=== PATIENT | female | born 1975 | race Two or more races ===

== ENCOUNTER 2024-08-06 15:34 | Emergency (ER) | payer MEDICARE, MEDICAID, SELFPAY ==
[2024-08-06 15:35] VITALS: BMI 31.9
[2024-08-06 15:58] VITALS: BP 160/98; PULSE 75; RESP 20; TEMP 37.1; O2SAT 95
--- NOTE | 2024-08-06 16:08 | PD.EDDENTL ---
ED Dental RME/HPI General Chief complaint: Dental/Oral/Throat Stated complaint: TOOTHACHE/FACIAL SWELLING x 2 DAYS,SENT BY DENTIST Time Seen by Provider: 08/06/24 15:56 Arrival date/time: 08/06/24 15:34 RME / HPI RME / HPI Narrative: 49-year-old female patient was brought in by family for evaluation regarding request for antibiotic shot. Patient was seen by dentist for a dental infection on the left upper premolar, been ongoing for the last 2 days. Saw her dentist earlier today and was prescribed p.o. antibiotic however patient was advised to come for the shot. Denies any difficulty swallowing, denies any fever. She was prescribed antibiotic and pain medication that she still have to seed [facility]er Related Data Previous Rx's ?Medication ?Instructions ?Recorded lisinopril 10 mg tablet 10 mg PO QDAY #30 tabs 10/31/15 Allergies Allergy/AdvReac Type Severity Reaction Status Date / Time No Known Allergies Allergy Verified 08/06/24 15:36 Review of Systems Review of Systems Narrative Review of Systems: Review of system reviewed and within normal limits except mentioned in HPI ED Exam Narrative Physical exam: VITAL SIGNS: Reviewed. GENERAL APPEARANCE: Alert and interactive, follows commands, no acute distress, HEAD AND FACE: Non-traumatic. ENT: PERRL, pink conjunctivitis, eyelid no trauma, Mucous membrane moist. Multiple dental cavity noted on the left upper premolar, with gumline swelling, nonfluctuant. Facial swelling noted also on the left no redness NECK: Supple, nontender, no nuchal rigidity. CHEST: No tenderness, no crepitus, no paradoxical movement, no retractions. LUNGS: Clear, well ventilated, symmetric, no rales, no wheezing, no ronchi, no stridor, good breath sounds bilaterally. HEART: Regular rate, regular rhythm, no murmur, no gallops. ABDOMEN: Soft, positive bowel sounds, nondistended, no guarding, nontender, no rebound, no masses, RECTAL: Deferred. GENITAL: Deferred. NEUROLOGICAL: Gross motor function intact sensory function intact, Appropriate for age. MUSCULOSKELETAL: low back nontender, full range of motion. EXTREMITIES: Nontender, full range of motion. SKIN: Color pink, dry, no rash, no lacerations, no abrasions, no contusions. LYMPHATICS: Deferred. Course Quality Measures none Orders Category Date Time Status Clindamycin Vial [Cleocin vial] Med 08/06/24 16:07 Discontinued 600 mg IM X1 ONE Ketorolac Inj [Toradol Inj] Med 08/06/24 16:12 Once 30 mg IM X1 ONE Vital Signs Vital signs: Vital Signs Temperature 98.7 F 08/06/24 15:58 Pulse Rate 75 08/06/24 15:58 Respiratory Rate 20 08/06/24 15:58 Blood Pressure 160/98 H 08/06/24 15:58 Pulse Oximetry (%) 95 08/06/24 15:58 Oxygen Delivery Method Room Air 08/06/24 15:58 Dental / Oral MDM Narrative MDM Narrative:: 49-year-old female patient was brought in by family for evaluation regarding request for antibiotic shot. Patient was seen by dentist for a dental infection on the left upper premolar, been ongoing for the last 2 days. Saw her dentist earlier today and was prescribed p.o. antibiotic however patient was advised to come for the shot. Denies any difficulty swallowing, denies any fever. She was prescribed antibiotic and pain medication that she still have to [facility] Patient received clindamycin IM. 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 Patient appears nontoxic and hemodynamically stable .Decision to discharge the patient. The patient/family was given an opportunity to ask questions and understood their discharge instructions. Discharge instructions specifically included follow up provider and time frame, current and/or new medications and possible side effects, indications for sooner follow up or return to the emergency department, and the expected course of current diagnosis. Patient reports feeling better as well and giving evidence of significant clinical improvement, I believe patient is now a candidate for discharge. Patient data External records reviewed:: None Clinical information provided by:: patient Social determinants that could affect healthcare access:: none Patient has the following chronic illnesses:: None How is presenting disease/condition affected by chronic disease/condition?: exacerbated by Evaluation data The following diagnostics were reviewed and interpreted by me:: other (specify) Lab and/or radiology exams considered but not ordered:: None Interpretation Summary: None Medications / Prescriptions Medications or Prescriptions considered but not ordered:: None Medication administrations:: Medication Administration History Discontinued Medications Clindamycin Phosphate (Clindamycin Phos Inj 150 Mg/Ml Vial 6 Ml) 600 mg IM X1 ONE Stop: 08/06/24 16:08 Clindamycin IM and Toradol IM Consultations Consultation(s) initiated? (list below): No Diagnosis Dental Differential Diagnosis: gingival abscess, dental caries and toothache Most likely diagnosis given after review of the tests above:: Infected dental caries Admission Indicated Admission indicated?: not indicated Admission Request Was there a request for admission?: No Disposition Plan Disposition Plan: Discharge Discharge Attestation Discharge Attestation: The patient and all family members were given an opportunity to ask questions and understood the discharge instructions. Discharge instructions specifically effects, indications for sooner follow up or return to the emergency department, and the expected course of current diagnosis. Patient condition: Stable Discharge Plan Plan Patient Disposition: HOME (Self Care) Discharge Disposition comment: Stable Prescriptions/Referrals Prescriptions/Med Rec: No Action lisinopril 10 MG tablet 10 mg PO QDAY Qty: 30 0RF Problem List Clinical Impression: Infected dental caries Patient/Caregiver Discharge Instructions Discharge Activity: activity as tolerated Education Materials: Understanding Tooth Decay Additional Instructions: Thank you for the opportunity for serving you today. You are stable for discharged . You are advised to: Follow-up with your dentist as instructed Return to ED for worsening of symptoms Increase oral fluids Take medication as prescribed by your dentist Print Language: Luxembourgish Stand Alone Forms: Hannah Award Info., Patient Portal Info Letter SHAHEEN/KATE Supervising Physician SHAHEEN/KATE Supervising Physician: Montana Parra MD
[2024-08-06] MEDS: CLINDAMYCIN PHOS INJ 150 MG/ML VIAL 6 ML 600 MG IM (16:27)
[2024-08-06] MEDS: KETOROLAC INJ 60 MG/2 ML VIAL 30 MG IM (16:27)
== END 2024-08-06 16:35 | disposition home or self-care (01) ==
LOC: SERX 16:40
PROVIDERS: Emergency Provider Emergency Medicine
DX: K02.9 Dental caries, unspecified (principal); K04.7 Periapical abscess without sinus
CPT/HCPCS: 96372; 99283; J0736; J1885